=== PATIENT | female | born 1960 | race Caucasian/White ===

== ENCOUNTER 2018-10-09 09:56 | Emergency (ER) | payer BC ==
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
[2018-10-09 12:22] LABS: INR 1.07 (0.82-1.09)
[2018-10-09 12:45] LABS: Albumin 4.2 g/dL (3.2-5.2); Potassium 3.5 mmol/L (3.5-5.0); Total Bilirubin 0.6 mg/dL (0.2-1.0)
[2018-10-09 12:51] LABS: Albumin/Globulin Ratio 1.4 (1-3); BUN/Creatinine Ratio 16.2 (8-20); EGFR African American 107.9 (>60); EGFR Non-African American 89.2 (>60); Globulin 3.1 g/dL (2-4); Total Protein 7.3 g/dL (6.4-8.9)
[2018-10-09 13:40] LABS: ABS Eosinophils 0.1 10^3/ul (0-0.6); ABS Lymphocytes 2.6 10^3/ul (1.0-4.8); ABS Monocytes 0.6 10^3/ul (0-0.8); ABS Neutrophils 5.4 10^3/ul (1.5-7.7); Eosinophil % 1.3 %; Hematocrit 42 % (35-47); Hemoglobin 14.4 g/dL (12.0-16.0); Lymphocyte % 29.4 %; Mean Corpuscular HGB Conc 34 g/dL (31-36); Mean Corpuscular Hemoglobin 31 pg (27-31); Mean Corpuscular Volume 90 fL (80-97); Mean Platelet Volume 8.8 fL (7.4-10.4); Nucleated Red Blood Cells % 0.1; Platelet Count 273 10^3/uL (150-450); Red Blood Count 4.69 10^6 /uL (3.70-4.87); Red Cell Distribution Width 15 % (10-15); White Blood Count 8.7 10^3/uL (3.5-10.8)
[2018-10-09] MEDS ORDERED: Artificial Tears* 15 ML BTL BOTH EYES ONE (15:08)
[2018-10-09 16:00] VITALS: BP 122/97
== END 2018-10-09 16:00 | disposition home or self-care (01) ==
LOC: ED 09:56
DX: T59.811A Toxic effect of smoke, accidental (unintentional), initial encounter (principal); H10.219 Acute toxic conjunctivitis, unspecified eye; J70.5 Respiratory conditions due to smoke inhalation; R07.9 Chest pain, unspecified; R04.2 Hemoptysis; Z79.899 Other long term (current) drug therapy; F43.10 Post-traumatic stress disorder, unspecified; R49.0 Dysphonia; R03.0 Elevated blood-pressure reading, without diagnosis of hypertension; Y92.009 Unspecified place in unspecified non-institutional (private) residence as the place of occurrence of the external cause
CPT/HCPCS: 36415; 80053; 82375; 84484; 85025; 85379; 85610; 93005; 99283; A9270-GY